=== PATIENT | male | born 1955 | race Caucasian/White ===

== ENCOUNTER → 2023-07-05 | Emergency (ER) | payer OTHER ==
[~2023-07-05] MED LIST: DOXYCYCLINE 100 MG CAP PO ONE
--- NOTE | 2023-07-05 19:39 | EDPHYS ---
Physician Documentation [facility] Name: Rogers Hudson Age: 67 yrs Sex: Male : 1955 Arrival Date: 07/05/2023 Time: 18:29 Bed 12 Private MD: ED Physician Shaquille Almonte HPI: 07/05 19:30 This 67 yrs old Male presents to ER via Ambulatory with complaints of Abscess. cp 19:30 The patient presents with cellulitis of the left davidson, the patient presents with a cp swollen area of the left davidson. Description: erythematous, swollen, warm. 19:30 Onset: The symptoms/episode began/occurred 5 day(s) ago, and became worse today. cp Possible cause(s): insect sting. Associated signs and symptoms: Pertinent negatives: discharge, drainage, fever. Historical: - Allergies: 18:43 Reglan; ll1 18:43 Stadol; ll1 - PMHx: 18:43 Hypertensive disorder; ll1 - PSHx: 18:43 orthopedic SX a lot; ll1 - Immunization history:: Adult Immunizations up to date. - Social history:: Smoking status: Patient denies any tobacco usage or history of. ROS: 19:33 Constitutional: Negative for body aches, chills, fever, poor PO intake, cp 19:33 MS/extremity: Negative for injury or acute deformity, cp 19:33 Skin: Positive for swelling, of the left davidson, erythema, 19:33 All other systems are negative, Exam: 19:35 Constitutional: The patient appears in no acute distress, alert, awake, non-toxic, well cp developed, well nourished, 19:35 Head/Face: Normocephalic, atraumatic. cp 19:35 Skin: well circumscribed area of erythema, mild induration approximately size of silver dollar noted left davidson, tenderness to palpation noted, no drainage able to be expressed. Vital Signs: 18:44 BP 159 / 79; Pulse 91; Resp 17; Temp 98.2; Pulse Ox 97% ; Weight 81.65 kg; Height 5 ft. ll1 6 in. ; Pain 6/10; 19:43 BP 147 / 81; Pulse 88; Resp 16; Temp 97.3(TE); Pulse Ox 99% on R/A; tl4 18:44 Body Mass Index 29.05 (81.65 kg, 167.64 cm) ll1 18:44 Pain Scale: Adult ll1 Lambert Coma Score: 19:43 Eye Response: spontaneous(4). Motor Response: obeys commands(6). Verbal Response: tl4 oriented(5). Total: 15. MDM: 18:38 Patient medically screened. cp 19:38 Data reviewed: vital signs, nurses notes, and as a result, I will discharge patient. cp 19:38 Counseling: I had a detailed discussion with the patient and/or guardian regarding the cp historical points, exam findings, and any diagnostic results supporting the discharge/admit diagnosis, to return to the emergency department if symptoms worsen or persist or if there are any questions or concerns that arise at home. Administered Medications: 19:50 Drug: Doxycycline PO 200 mg PO once Route: PO; tl4 19:52 Follow up: Response: Medication administered at discharge. tl4 Disposition Summary: 07/05/23 19:39 Discharge Ordered Notes: Location: Home cp Problem: new cp Symptoms: are unchanged cp Condition: Stable cp Diagnosis - Cellulitis of left lower limb cp Followup: cp - With: Private Physician - When: 2 - 3 days - Reason: Recheck today's complaints Discharge Instructions: - Discharge Summary Sheet cp - Cellulitis, Adult cp Forms: - Medication Reconciliation Form cp - Thank You Letter cp - Antibiotic Education cp - Prescription Opioid Use cp - Patient Portal Instructions cp - Leadership Thank You Letter cp Prescriptions: - Doxycycline Hyclate 100 mg Oral Tablet - take 1 tablet ORAL route every 12 hours; 20 tablet; Refills: 0, Product cp Selection Permitted Signatures: Addy Gay PA PA cp Diya Page RN RN ll1 Dominic Barnett RN RN tl4
--- NOTE | 2023-07-05 19:39 | ER ---
Nurse's Notes [facility] Name: Rogers Hudson Age: 67 yrs Sex: Male : 1955 Arrival Date: 07/05/2023 Time: 18:29 Bed 12 Private MD: Diagnosis: Cellulitis of left lower limb Presentation: 07/05 18:44 Chief complaint: Patient states: Abscess to LLE for 4-5 days getting worse each day. No ll1 fever. Coronavirus screen: Client denies travel out of the [place] in the last 14 days. At this time, the client does not indicate any symptoms associated with coronavirus-19. Ebola Screen: Patient denies travel to an Ebola-affected area in the 21 days before illness onset. Initial Sepsis Screen: Does the patient meet any 2 criteria? No. Patient's initial sepsis screen is negative. Does the patient have a suspected source of infection? Yes: Skin breakdown/wound. Risk Assessment: Do you want to hurt yourself or someone else? Patient reports no desire to harm self or others. Onset of symptoms was July 01, 2023. 18:44 Method Of Arrival: Ambulatory ll1 18:44 Acuity: NATHANIEL 4 ll1 Triage Assessment: 18:45 General: Appears uncomfortable, Behavior is calm, cooperative, appropriate for age. ll1 Pain: Complains of pain in left leg Pain currently is 6 out of 10 on a pain scale. Quality of pain is described as aching. Derm: Abscess located on left leg has purulent drainage, is red, is raised. Historical: - Allergies: 18:43 Reglan; ll1 18:43 Stadol; ll1 - PMHx: 18:43 Hypertensive disorder; ll1 - PSHx: 18:43 orthopedic SX a lot; ll1 - Immunization history:: Adult Immunizations up to date. - Social history:: Smoking status: Patient denies any tobacco usage or history of. Screenin:44 [facility] ED Fall Risk Assessment (Adult) History of falling in the last 3 months, tl4 including since admission No falls in past 3 months (0 pts) Confusion or Disorientation No (0 pts) Intoxicated or Sedated No (0 pts) Impaired Gait No (0 pts) Mobility Assist Device Used No (0 pt) Altered Elimination No (0 pt) Score/Fall Risk Level 0 - 2 = Low Risk Oriented to surroundings, Maintained a safe environment, Educated pt \T\ family on fall prevention, incl call for assistance when getting out of bed, Assessed \T\ reinforced patient's understanding of fall precautions, Provided non-skid footwear, Hourly rounding (assess needs \T\ fall precautionary measures) done, Used ambulatory aids as needed (educated on \T\ assisted with), Used gait belt as appropriate. Abuse screen: Denies threats or abuse. Denies injuries from another. Nutritional screening: No deficits noted. Tuberculosis screening: No symptoms or risk factors identified. Assessment: 19:43 Reassessment: No changes from previously documented assessment. Patient and/or family tl4 updated on plan of care and expected duration. Pain level reassessed. Patient is alert, oriented x 3, equal unlabored respirations, skin warm/dry/pink. Vital Signs: 18:44 BP 159 / 79; Pulse 91; Resp 17; Temp 98.2; Pulse Ox 97% ; Weight 81.65 kg; Height 5 ft. ll1 6 in. ; Pain 6/10; 19:43 BP 147 / 81; Pulse 88; Resp 16; Temp 97.3(TE); Pulse Ox 99% on R/A; tl4 18:44 Body Mass Index 29.05 (81.65 kg, 167.64 cm) ll1 18:44 Pain Scale: Adult ll1 Steuben Coma Score: 19:43 Eye Response: spontaneous(4). Motor Response: obeys commands(6). Verbal Response: tl4 oriented(5). Total: 15. ED Course: 18:31 Patient arrived in ED. rg4 18:38 Addy Gay PA is PHCP. cp 18:38 Shaquille Almonte MD is Attending Physician. cp 18:45 Triage completed. ll1 18:46 Arm band placed on Patient placed in an exam room, on a stretcher. ll1 19:44 Patient has correct armband on for positive identification. Placed in gown. Bed in low tl4 position. Call light in reach. Side rails up X2. Adult w/ patient. Provided Education on: ed process. Client placed on continuous cardiac and pulse oximetry monitoring. NIBP monitoring applied. Door closed. Lights dimmed. Moved to private room. Warm blanket given. 19:44 No provider procedures requiring assistance completed. Patient did not have IV access tl4 during this emergency room visit. Administered Medications: 19:50 Drug: Doxycycline PO 200 mg PO once Route: PO; tl4 19:52 Follow up: Response: Medication administered at discharge. tl4 Medication: 19:43 VIS not applicable for this client. tl4 Outcome: 19:39 Discharge ordered by . cp 19:53 Discharged to home ambulatory, with family, tl4 19:53 Condition: stable 19:53 Discharge instructions given to patient, family, Instructed on discharge instructions, follow up and referral plans. medication usage, wound care, Demonstrated understanding of instructions, follow-up care, medications, wound care, Prescriptions given X 1, 19:53 Patient left the ED. tl4 Signatures: Addy Gay PA PA cp Garcia, Rubi rg4 Diya Page, RN RN ll1 Dominic Barnett RN RN tl4
[2023-07-05 20:31] VITALS: BP 147/81; TEMP 97.3; O2SAT 99
== END ==
LOC: ER 18:29
DX: L03.116 Cellulitis of left lower limb (principal); Z88.5 Allergy status to narcotic agent; Z88.8 Allergy status to other drugs, medicaments and biological substances

== ENCOUNTER 2023-12-27 18:02 | Emergency (ER) | payer OTHER ==
[2023-12-27] MEDS ORDERED: LIDOCAINE 2% MPF 5 ML VIAL ONE (19:59)
[2023-12-27] MEDS ORDERED: TDAP (DIPHTH,PERTUSS(ACELL),TET VAC) 0.5 ML VIAL IMVAC ONE (19:59)
[2023-12-27] MEDS ORDERED: HYDROMORPHONE HCL 1 MG/ML INJ ONE ×3 (19:59→23:24)
--- NOTE | 2023-12-27 20:27 | RAD REPORT ---
EXAM DESCRIPTION: CT - CTHCSPWOC - 12/27/2023 7:19 pm CLINICAL HISTORY: fall COMPARISON: Facial Bones W/ Mpr dated 12/27/2023 TECHNIQUE: Axial thin cut noncontrast CT images of the head were obtained. Axial thin cut noncontrast CT images of the cervical spine were obtained. Multiplanar reformatted images were generated and reviewed. All CT scans are performed using dose optimization technique as appropriate and may include automated exposure control or mA/KV adjustment according to patient size. FINDINGS: CT HEAD WITHOUT CONTRAST: Asymmetric mild prominence of the frontal extra-axial spaces more so on the left, with no discrete hy perdense collections No acute hemorrhage, hydrocephalus or discrete abnormal extra-axial collection i s identified.No areas of brain edema or midline shift. The paranasal sinuses and mastoids are clear.The calvarium is intact. Frontal scalp soft tissue swel ling and overlying bandage. CT CERVICAL SPINE WITHOUT CONTRAST: No fracture or subluxation.Mild multilevel degenerative changes with uncovertebral joint and facet sp urring contributing to moderate bilateral neural foraminal narrowing at C3-4, and C5-6. No prevertebr al soft tissues swelling is identified. IMPRESSION: Asymmetric mild prominence of the frontal extra-axial spaces more so on the left, with d ensity conforming to CSF. This may relate to mild diffuse parenchymal volume loss versus small hygrom as. No other evidence of acute traumatic intracranial or cervical spine findings.
--- NOTE | 2023-12-27 20:30 | RAD REPORT ---
EXAM DESCRIPTION: CT - CTFB CLINICAL HISTORY: injury COMPARISON: No comparisons TECHNIQUE: Axial thin cut noncontrast CT images of the face were obtained with sagittal and coronal reconstruction images. All CT scans are performed using dose optimization technique as appropriate and may include automated exposure control or mA/KV adjustment according to patient size. FINDINGS: No acute facial bone fracture is seen.The mandible is intact. The globes and orbital contents are grossly unremarkable.The paranasal sinuses and mastoids are clear . IMPRESSION: Negative for facial bone fracture.
--- NOTE | 2023-12-27 20:30 | RAD REPORT ---
EXAM DESCRIPTION: RAD - Pelvis - 12/27/2023 7:55 pm CLINICAL HISTORY: fall COMPARISON: No comparisons TECHNIQUE: Single AP view of the pelvis. FINDINGS: The visualized pelvic ring is intact. No suspicious osseous lesions. No significant degene rative changes or erosions of the hip joints. Other pelvic joints are unremarkable. Lower lumbar spin e fusion hardware present. Visualized aspects of the abdomen and soft tissues are unremarkable. IMPRESSION: No acute osseous abnormality of the bony pelvis.
--- NOTE | 2023-12-27 20:31 | RAD REPORT ---
EXAM DESCRIPTION: RAD - Femur Right - 12/27/2023 7:55 pm CLINICAL HISTORY: PAIN COMPARISON: No comparisons TECHNIQUE: Right femur, 2 views. FINDINGS: Evidence of revised right knee arthroplasty hardware. Osseous remodeling, with a somewhat displaced fragment along the distal lateral femoral cortex, could relate to osseous malunion or a per iprosthetic fracture. There is no dislocation or periosteal reaction noted. No acute or suspicious [place] finding. IMPRESSION: Displaced fragment along the distal lateral femoral cortex, could relate to chronic osse ous malunion or a recent periprostatic fracture.
--- NOTE | 2023-12-27 21:04 | ER ---
Nurse's Notes [facility] Name: Rogers Hudson Age: 68 yrs Sex: Male : 1955 Arrival Date: 12/27/2023 Time: 18:02 Bed 7 Private MD: Diagnosis: Laceration of Left Upper Eyelid;Right Distal Femur Periprosthetic Fracture;Laceration without foreign body of unspecified part of head Presentation: 12/26 19:04 Chief complaint: Patient states: Pt states he fell forward into a pile of branches from tl4 fallen tree at approx 1700. Pt struck his left side face on branch, and injured right thigh. Pt denies LOC. Pt has bleeding through bandage. Coronavirus screen: At this time, the client does not indicate any symptoms associated with coronavirus-19. Ebola Screen: No symptoms or risks identified at this time. Initial Sepsis Screen: Does the patient meet any 2 criteria? No. Patient's initial sepsis screen is negative. Does the patient have a suspected source of infection? No. Patient's initial sepsis screen is negative. Risk Assessment: Do you want to hurt yourself or someone else? Patient reports no desire to harm self or others. Onset of symptoms was December 27, 2023 at 17:00. 19:04 Method Of Arrival: Wheelchair tl4 19:04 Acuity: NATHANIEL 3 tl4 Triage Assessment: 19:07 General: Appears distressed, uncomfortable, Behavior is cooperative. Pain: Complains of tl4 pain in face. EENT: No signs and/or symptoms were reported regarding the EENT system. Neuro: Level of Consciousness is awake, alert, obeys commands, Oriented to person, place, time, situation. Cardiovascular: Capillary refill < 3 seconds Patient's skin is warm and dry. Respiratory: Airway is patent Respiratory effort is even, unlabored, Respiratory pattern is regular, symmetrical. GI: No signs and/or symptoms were reported involving the gastrointestinal system. : No signs and/or symptoms were reported regarding the genitourinary system. Derm: Wound noted face Wound is jagged laceration above left eye. Musculoskeletal: Reports pain in right leg. Injury Description: Laceration sustained to face is jagged, moderate bleeding noted at this time. Historical: - Allergies: 19:06 Reglan; tl4 19:06 Stadol; tl4 - PMHx: 19:06 Hypertensive disorder; tl4 - PSHx: 19:06 orthopedic SX a lot; tl4 - Immunization history:: Adult Immunizations unknown. - Infectious Disease History:: Denies. - Social history:: Smoking status: Patient denies any tobacco usage or history of. Screenin:52 [facility] ED Fall Risk Assessment (Adult) History of falling in the last 3 months, tm6 including since admission Yes- single mechanical fall (1 pt) Confusion or Disorientation No (0 pts) Intoxicated or Sedated No (0 pts) Impaired Gait No (0 pts) Mobility Assist Device Used No (0 pt) Altered Elimination No (0 pt) Score/Fall Risk Level 0 - 2 = Low Risk Oriented to surroundings, Maintained a safe environment, Educated pt \T\ family on fall prevention, incl call for assistance when getting out of bed. Abuse screen: Denies threats or abuse. Denies injuries from another. Nutritional screening: No deficits noted. Tuberculosis screening: No symptoms or risk factors identified. Assessment: 20:49 General: Appears in no apparent distress. Behavior is calm, cooperative. Pain: tm6 Complains of pain in right leg and face Pain currently is 8 out of 10 on a pain scale. Neuro: Level of Consciousness is awake, alert, obeys commands, Oriented to person, place, time, situation. Cardiovascular: Patient's skin is warm and dry. Respiratory: Airway is patent Respiratory effort is even, unlabored, Respiratory pattern is regular, symmetrical. GI: No signs and/or symptoms were reported involving the gastrointestinal system. Abdomen is round non-distended. : No signs and/or symptoms were reported regarding the genitourinary system. EENT: No signs and/or symptoms were reported regarding the EENT system. Derm: Wound noted face Wound is small laceration. Musculoskeletal: Reports pain in right leg. Injury Description: Laceration sustained to face a small amount of bleeding noted at this time. 23:35 Reassessment: Patient appears in no apparent distress at this time. Patient and/or tm6 family updated on plan of care and expected duration. Pain level reassessed. Patient is alert, oriented x 3, equal unlabored respirations, skin warm/dry/pink. Vital Signs: 19:04 BP 164 / 67; Pulse 90; Resp 18; Temp 99.8(O); Pulse Ox 98% on R/A; Weight 79.38 kg; tl4 Height 5 ft. 7 in. ; Pain 6/10; 20:49 BP 156 / 69; Pulse 78; Pulse Ox 97% on R/A; Pain 8/10; tm6 21:41 Pain 7/10; tm6 22:35 Pain 6/10; tm6 23:35 BP 143 / 80; Pulse 85; Pulse Ox 95% on R/A; Pain 8/10; tm6 12/27 00:46 BP 153 / 72; Pulse 95; Resp 19; Temp 99.5; Pulse Ox 97% on R/A; Pain 8/10; tm6 12/26 19:04 Body Mass Index 27.41 (79.38 kg, 170.18 cm) tl4 12/26 19:04 Pain Scale: Adult tl4 20:49 Pain Scale: Adult tm6 21:41 Pain Scale: Adult tm6 22:35 Pain Scale: Adult tm6 23:35 Pain Scale: Adult tm6 12/27 00:46 Pain Scale: Adult tm6 ED Course: 12/26 18:06 Patient arrived in ED. mg5 18:22 Addy Gay PA is PHCP. cp 18:22 Shaquille Almonte MD is Attending Physician. cp 19:06 Triage completed. tl4 19:08 Arm band placed on right wrist. tl4 19:20 Shanon Zuñiga, RN is Primary Nurse. al5 19:21 CT Head C Spine In Process Unspecified. EDMS 19:21 CT Facial Bones W/O Con: thin cuts through orbits In Process Unspecified. EDMS 19:57 XRAY Femur RIGHT In Process Unspecified. EDMS 19:57 XRAY Pelvis In Process Unspecified. EDMS 20:32 Missed attempt(s): 22 gauge in right wrist. Bleeding controlled, band aid applied, tm6 catheter tip intact. 20:52 Patient has correct armband on for positive identification. Bed in low position. Call tm6 light in reach. Side rails up X 1. Provided Education on: use of call xiao. Client placed on continuous cardiac and pulse oximetry monitoring. NIBP monitoring applied. Pulse ox on. NIBP on. Door closed. Noise minimized. Warm blanket given. Pillow given. 21:07 Inserted saline lock: 20 gauge in right forearm, using aseptic technique. Blood af3 collected. Flushed with 10 mL NS. 21:08 CBC with Diff Sent. af3 21:08 BMP Sent. af3 22:03 initiated transfer spoke with Emily. vk 22:37 patient was accepted to [facility] ER. vk 22:37 patient was accepted to Dr[address] dexter. vk 12/27 00:12 initiated transport with [facility]entes spoke with VINCENZO [place] 30 mins. vk 00:48 No provider procedures requiring assistance completed. Patient transferred, IV remains tm6 in place. Administered Medications: 12/26 20:31 Not Given (Product Out of Stock): tetanus-diphtheria toxoidadult 0.5 ml IM once; tm6 Provide Vaccine Information Statement (VIS). 20:32 Drug: Boostrix Tdap IM 0.5 ml IM once; as a single dose Route: IM; Site: right deltoid; tm6 21:15 Follow up: Response: (VIS) Vaccine information sheet provided today. Questions and/or tm6 concerns addressed. VIS edition date: Dec 16, 2020.; No adverse reaction 21:15 Drug: HYDROmorphone IVP 1 mg IVP once Route: IVP; Site: right forearm; tm6 21:41 Follow up: Response: No adverse reaction; Pain is unchanged, physician notified tm6 21:33 Drug: Lidocaine Infiltration (2 %) 5 ml 5 ml Infiltration once; to bedside with tm6 epinephrine {Note: administered by MD.} Volume: 5 ml; Route: Infiltration; 23:36 Follow up: Response: No adverse reaction tm6 21:45 Drug: HYDROmorphone IVP 1 mg IVP once Route: IVP; Site: right forearm; tm6 22:35 Follow up: Pain 6/10 Adult; Response: No adverse reaction; Pain is decreased tm6 23:36 Drug: HYDROmorphone IVP 1 mg IVP once Route: IVP; Site: right forearm; tm6 12/27 00:47 Follow up: Response: No adverse reaction; Pain is unchanged, physician notified tm6 00:47 Drug: HYDROmorphone IVP 1 mg IVP once Route: IVP; Site: right forearm; tm6 00:47 Follow up: Response: Medication Administered at Departure tm6 Medication: 12/26 20:32 Vaccine Information Statement (VIS) provided today. Questions and/or concerns tm6 addressed. VIS edition date: December 16, 2020. Outcome: 21:03 ER care complete, transfer ordered by MD. baumann 12/27 00:48 Transferred by ground EMS to [facility], tm6 Condition: stable Instructed on the need for transfer, 00:48 Patient left the ED. tm6 Signatures: Dispatcher [employer] EDMS Addy Gay PA PA cp Gardner, [place] 5 Khris Leyva RN RN tm6 Dominic Barnett RN RN tl4 Marni Tinajero Amanda, RN RN al5 Lita Kruger af3
--- NOTE | 2023-12-27 21:04 | EDPHYS ---
Physician Documentation [facility] Name: Rogers uHdson Age: 68 yrs Sex: Male : 1955 Arrival Date: 12/27/2023 Time: 18:02 Bed 7 Private MD: ED Physician Shaquille Almonte HPI: 12/26 19:15 This 68 yrs old Male presents to ER via Wheelchair with complaints of Fall Injury, cp Laceration To Forehead. 19:15 Details of fall: The patient fell from an upright position, while standing. Onset: The cp symptoms/episode began/occurred just prior to arrival. Patient reports losing balance while in yard and falling into debris that was on ground. no LOC. Injuries to face and reports right leg pain with history of right knee replacement. Historical: - Allergies: 19:06 Reglan; tl4 19:06 Stadol; tl4 - PMHx: 19:06 Hypertensive disorder; tl4 - PSHx: 19:06 orthopedic SX a lot; tl4 - Immunization history:: Adult Immunizations unknown. - Infectious Disease History:: Denies. - Social history:: Smoking status: Patient denies any tobacco usage or history of. ROS: 19:20 Constitutional: HX per HPI cp 19:20 Constitutional: Negative for fever, cp 19:20 Cardiovascular: Negative for chest pain, 19:20 Respiratory: Negative for cough, shortness of breath, wheezing, 19:20 Abdomen/GI: Negative for abdominal pain, nausea, vomiting, and diarrhea, 19:20 Back: Negative for pain at rest, pain with movement, 19:20 MS/extremity: Positive for pain, of the right upper leg, 19:20 All other systems are negative, Exam: 19:25 Constitutional: The patient appears in no acute distress, alert, awake, cp non-diaphoretic, non-toxic, well developed, well nourished, uncomfortable, 19:25 Head/face: Noted is a laceration(s), that is deep, of the forehead, cp 19:25 Eyes: Periorbital structures: appear normal, Pupils: equal, round, and reactive to light and accomodation, Extraocular movements: intact throughout, Conjunctiva: normal, Corneas: foreign body, is not appreciated, Lids and lashes: laceration, that extends the full-thickness of the lid, of the left upper lid, 19:25 ENT: External ear(s): are unremarkable, Nose: is normal, Mouth: Lips: moist, Oral mucosa: pink and intact, moist, Posterior pharynx: Airway: no evidence of obstruction, patent, 19:25 Neck: C-spine: vertebral tenderness, is not appreciated, crepitus, is not appreciated, 19:25 Chest/axilla: Inspection: normal, Palpation: is normal, no crepitus, no tenderness, 19:25 Cardiovascular: Rate: normal, 19:25 Respiratory: the patient does not display signs of respiratory distress, Respirations: normal, no use of accessory muscles, no retractions, labored breathing, is not present, Breath sounds: are clear throughout, no decreased breath sounds, no stridor, no wheezing, 19:25 Abdomen/GI: Inspection: abdomen appears normal, Palpation: abdomen is soft and non-tender, in all quadrants, 19:25 Back: vertebral tenderness, is not appreciated, 19:25 Musculoskeletal/extremity: Extremities: noted in the right upper leg: lateral distal femur pain and tenderness, 19:25 Neuro: Orientation: to person, place \T\ time. Mentation: is normal, Motor: moves all fours, no focal deficits, Vital Signs: 19:04 BP 164 / 67; Pulse 90; Resp 18; Temp 99.8(O); Pulse Ox 98% on R/A; Weight 79.38 kg; tl4 Height 5 ft. 7 in. ; Pain 6/10; 20:49 BP 156 / 69; Pulse 78; Pulse Ox 97% on R/A; Pain 8/10; tm6 21:41 Pain 7/10; tm6 22:35 Pain 6/10; tm6 23:35 BP 143 / 80; Pulse 85; Pulse Ox 95% on R/A; Pain 8/10; tm6 12/27 00:46 BP 153 / 72; Pulse 95; Resp 19; Temp 99.5; Pulse Ox 97% on R/A; Pain 8/10; tm6 16 19:04 Body Mass Index 27.41 (79.38 kg, 170.18 cm) tl4 16 19:04 Pain Scale: Adult tl4 20:49 Pain Scale: Adult tm6 21:41 Pain Scale: Adult tm6 22:35 Pain Scale: Adult tm6 23:35 Pain Scale: Adult tm6 12/27 00:46 Pain Scale: Adult tm6 Laceration: 12/26 22:00 Wound Repair of 3.5cm ( 1.4in ) subcutaneous laceration to forehead. Irregularly cp shaped.. Distal neuro/vascular/tendon intact. Anesthesia: Wound infiltrated with 5 mls of 2% lidocaine. Wound prep: Simple cleansing by me. Skin closed with 5 5-0 Prolene using interrupted sutures and sterile technique. Dressed with Bacitracin. Patient tolerated well. MDM: 18:56 Patient medically screened. 21:05 Data reviewed: vital signs, nurses notes, radiologic studies, CT scan, plain films, and cp as a result, I will transfer patient. 21:05 I considered the following discharge prescriptions or medication management in the emergency department Medications were administered in the Emergency Department. See MAR. Care significantly affected by the following chronic conditions: Hypertension. 22:00 Counseling: I had a detailed discussion with the patient and/or guardian regarding the historical points, exam findings, and any diagnostic results supporting the discharge/admit diagnosis, lab results, radiology results, the need to transfer to another facility, [facility] does not immediately have the required specialist. Response to treatment: the patient's symptoms have markedly improved after treatment. 12/26 19:09 Order name: CBC with Diff; Complete Time: 00:40 12/27 00:40 Interpretation: Normal except: WBC 13.50; HGB 13.3; MPV 7.1; NEUT A 9.3. 12/26 19:09 Order name: BMP; Complete Time: 00:40 12/26 19:09 Order name: CT Head C Spine; Complete Time: 20:34 12/26 19:09 Order name: CT Facial Bones W/O Con: thin cuts through orbits; Complete Time: 20:34 12/26 19:10 Order name: XRAY Femur RIGHT; Complete Time: 20:34 cp 12/26 19:10 Order name: XRAY Pelvis; Complete Time: 20:34 cp 12/26 19:09 Order name: IV; Complete Time: 21:08 12/26 19:32 Order name: Dressing - Wound; Complete Time: 23:36 cp 12/26 19:32 Order name: Gloves, Sterile; Complete Time: 20:56 cp 12/26 19:32 Order name: Setup Suture Tray; Complete Time: 20:56 cp Administered Medications: 20:31 Not Given (Product Out of Stock): tetanus-diphtheria toxoidadult 0.5 ml IM once; tm6 Provide Vaccine Information Statement (VIS). 20:32 Drug: Boostrix Tdap IM 0.5 ml IM once; as a single dose Route: IM; Site: right deltoid; tm6 21:15 Follow up: Response: (VIS) Vaccine information sheet provided today. Questions and/or tm6 concerns addressed. VIS edition date: Dec 16, 2020.; No adverse reaction 21:15 Drug: HYDROmorphone IVP 1 mg IVP once Route: IVP; Site: right forearm; tm6 21:41 Follow up: Response: No adverse reaction; Pain is unchanged, physician notified tm6 21:33 Drug: Lidocaine Infiltration (2 %) 5 ml 5 ml Infiltration once; to bedside with tm6 epinephrine {Note: administered by MD.} Volume: 5 ml; Route: Infiltration; 23:36 Follow up: Response: No adverse reaction tm6 21:45 Drug: HYDROmorphone IVP 1 mg IVP once Route: IVP; Site: right forearm; tm6 22:35 Follow up: Pain 6/10 Adult; Response: No adverse reaction; Pain is decreased tm6 23:36 Drug: HYDROmorphone IVP 1 mg IVP once Route: IVP; Site: right forearm; tm6 12/27 00:47 Follow up: Response: No adverse reaction; Pain is unchanged, physician notified tm6 00:47 Drug: HYDROmorphone IVP 1 mg IVP once Route: IVP; Site: right forearm; tm6 00:47 Follow up: Response: Medication Administered at Departure tm6 Disposition Summary: 12/27/23 21:03 Transfer Ordered Notes: Transfer Location: [facility] cp Reason: Higher level of care cp Condition: Stable cp Problem: new cp Symptoms: have improved cp Accepting Physician: DR Lauren Quintana(12/28/23 00:48) tm6 Diagnosis - Laceration of Left Upper Eyelid cp - Right Distal Femur Periprosthetic Fracture cp - Laceration without foreign body of unspecified part of head cp Forms: - Medication Reconciliation Form cp - SBAR form cp Addendum: 12/29/2023 19:00 Co-signature as Attending Physician, Shaquille Almonte MD I reviewed the patient's care r n provided by the Advanced Practice Provider and agree with the diagnosis and treatment plan. Signatures: Dispatcher [employer] EDPA Shaquille Almonte MD MD rn Addy Gay, Khris Sherman cp RN RN tm6 Dominic Barnett RN RN tl4 Corrections: (The following items were deleted from the chart) 12/26 19:09 19:09 CBC+H.LAB.BRZ ordered. EDPA EDPA 19:09 19:09 BASIC METABOLIC PANEL+C.LAB.BRZ ordered. [facility] EDPA 12/27 00:42 12/26 21:03 Doctor cp 12/27 00:48 00:42 DR Lauren Quintana cp tm6
[2023-12-27 21:17] LABS: Absolute Basophils 0.1 K/uL (0-0.5); Absolute Eosinophils 0.1 K/uL (0-0.5); Absolute Lymphocytes (CBC) 3.3 K/uL (0.7-4.9); Absolute Monocytes 0.8 K/uL (0.1-1.3); Absolute Neutrophil 9.3 K/uL (1.8-8.0); Basophils % 0.4 % (0-1.3); Eosinophils % 0.8 % (0-4.4); Hematocrit 40.2 % (39.6-49.0); Hemoglobin 13.3 g/dL (13.6-17.9); Lymphocytes % 24.6 % (15.3-44.8); MCH 27.2 pg (27.0-35.0); MCHC 33.1 g/dL (32.0-36.0); MCV 82.1 fL (80-100); MPV 7.1 fL (7.6-11.3); Monocytes % 5.8 % (3.3-12.3); Neutrophils % 68.4 % (41.7-73.7); Platelets 278 thou/uL (152-406); Red Cell Distribution Width 13.7 % (12.1-15.2)
[2023-12-27 21:32] LABS: Anion Gap 8.3 mEq/L (5.0-15.0); Potassium 3.3 mEq/L (3.5-5.1)
[2023-12-28] MEDS ORDERED: HYDROMORPHONE HCL 1 MG/ML INJ ONE (00:43)
[2023-12-28 01:37] VITALS: BP 153/72; TEMP 99.5; O2SAT 97
== END 2023-12-28 00:48 | disposition short-term general hospital (02) ==
LOC: ER 18:02
PROC: 0HQ1XZZ Repair Face Skin, External Approach (ICD-10-PCS; principal; 2023-12-28)
DX: S01.81XA Laceration without foreign body of other part of head, initial encounter (principal); S01.112A Laceration without foreign body of left eyelid and periocular area, initial encounter; S72.401A Unspecified fracture of lower end of right femur, initial encounter for closed fracture; M97.11XA Periprosthetic fracture around internal prosthetic right knee joint, initial encounter; W18.30XA Fall on same level, unspecified, initial encounter
CPT/HCPCS: 12013 ×2; 85025; 80048; 36415; 70450; 72125; 70486; 76377; 72170; 73552; 96372; 96374; 99285; J2001; J1170 ×4; 12001; 90471